=== PATIENT | female | born 1965 | race Caucasian/White ===

== ENCOUNTER 2020-08-13 07:33 | Outpatient (CLI) | payer SELFPAY ==
--- NOTE | ~2020-08-13 | NM_ITS ---
EXAMINATION: NM stress w perf spect multi DATE: 08/13/2020 12:10 INDICATION: Chest pain. Left anterior fascicular block. TECHNIQUE: Rest images were obtained following intravenous administration of 9.4 mCi Tc99m tetrofosmi n (Myoview). The patient performed an exercise activity. At peak exercise, 30.5 mCi Tc99m tetrofosmin (Myoview) was administered intravenously, and stress images were obtained. Data was reconstructed in to short axis and horizontal and vertical long axis SPECT images. Gated SPECT images were also obtain ed. COMPARISON: None. FINDINGS: There is no definite reversible or fixed perfusion abnormality to suggest ischemia or infar ction. There is no segmental wall motion abnormality. Left ventricular ejection fraction measures > 70%. IMPRESSION: 1. No definite ischemia or infarct. 2. Normal left ventricular ejection fraction measuring >70%. Reviewed, dictated and finalized at location A. CAL OFFICE SECRETARY
--- NOTE | 2020-08-13 07:48 | EST_ITS ---
Patient Info Name: Odessa Guerrero Age: 55 years : 1965 Gender: Female Ht: 63 in Wt: 167 lbs BSA: 1.86 m2 Exam Date: 08/13/2020 10:09 AM Exam Location: [facility] Stress Patient Status: Outpatient Admit Date: 08/13/2020 Staff Ordering Physician: Miranda Cortes Attending Provider: Miranda Cortes Exercise Technologist: Vanessa Anaya RDCS Exercise Physician: Michael Johnson DO Exam Type: CA stress test treadmill w NM Study Info Indications i44.4 - left anterior fascicular block A pharmacological stress test was performed. Summary 1. 1. Negative Satinder exercise stress test for ischemic ST changes by ECG criteria. 2. 2. Reduced functional capacity, achieving 7 METs of workload. 3. 3. Baseline hypertension with hypertensive response to exercise. 4. 4. Appropriate HR response to exercise. 5. 5. Appropriate HR recovery at 1 minute post exercise. 6. 6. Nuclear scan to follow and will be reported separately. Please correlate with it. 7. 7. Patient informed of the above results. Protocol: Satinder Stress ECG Details Stage: REST Duration (min): 7 min : 44 sec Speed (mph): 0.0 Grade (%): 0 HR (bpm): 62 SBP (mmHg): 165 DBP (mmHg): 91 METS: --- Stage: REST Duration (min): 10 min : 12 sec Speed (mph): 0.0 Grade (%): 0 HR (bpm): 83 SBP (mmHg): 165 DBP (mmHg): 91 METS: --- Stage: STAGE 1 Duration (min): 1 min : 0 sec Speed (mph): 1.7 Grade (%): 10 HR (bpm): 100 SBP (mmHg): 124 DBP (mmHg): 92 METS: --- Stage: STAGE 1 Duration (min): 2 min : 0 sec Speed (mph): 1.7 Grade (%): 10 HR (bpm): 107 SBP (mmHg): 124 DBP (mmHg): 92 METS: --- Stage: STAGE 1 Duration (min): 3 min : 0 sec Speed (mph): 1.7 Grade (%): 10 HR (bpm): 114 SBP (mmHg): 179 DBP (mmHg): 92 METS: --- Stage: STAGE 2 Duration (min): 1 min : 0 sec Speed (mph): 2.5 Grade (%): 12 HR (bpm): 129 SBP (mmHg): 179 DBP (mmHg): 92 METS: --- Stage: STAGE 2 Duration (min): 2 min : 0 sec Speed (mph): 2.5 Grade (%): 12 HR (bpm): 137 SBP (mmHg): 216 DBP (mmHg): 104 METS: --- Stage: STAGE 2 Duration (min): 3 min : 0 sec Speed (mph): 2.5 Grade (%): 12 HR (bpm): 147 SBP (mmHg): 216 DBP (mmHg): 104 METS: --- Stage: STAGE 3 Duration (min): 0 min : 12 sec Speed (mph): 3.4 Grade (%): 14 HR (bpm): 148 SBP (mmHg): 216 DBP (mmHg): 104 METS: --- Stage: RECOVERY Duration (min): 0 min : 47 sec Speed (mph): 0.0 Grade (%): 0 HR (bpm): 136 SBP (mmHg): 209 DBP (mmHg): 96 METS: --- Stage: RECOVERY Duration (min): 1 min : 47 sec Speed (mph): 0.0 Grade (%): 0 HR (bpm): 100 SBP (mmHg): 209 DBP (mmHg): 96 METS: --- Stage: RECOVERY Duration (min): 2 min : 47 sec Speed (mph): 0.0 Grade (%): 0 HR (bpm): 94 SBP (mmHg): 170 DB
--- NOTE | 2020-08-13 07:48 | ECG_ITS ---
Measurements Intervals [place] Rate: 61 P: 43 MA: 175 QRS: -44 QRSD: 96 T: 61 QT: 402 QTc: 407 Interpretive Statements SINUS RHYTHM POSSIBLE LEFT ATRIAL ENLARGEMENT LEFT AXIS DEVIATION INCOMPLETE RIGHT BUNDLE BRANCH BLOCK POOR R WAVE PROGRESSION, ANTERIOR LEADS BASELINE ARTIFACT- V1 BORDERLINE ECG Electronically Signed On 08-13-2020 8:27:06 VOLUNTEER SERVICES MANAGER by Michael Johnson D.O.
--- NOTE | 2020-08-13 07:48 | ECHO_ITS ---
Patient Info Name: Odessa Guerrero Age: 55 years : 1965 Gender: Female Ht: 63 in Wt: 167 lbs BSA: 1.86 m2 HR: 60 bpm BP: 130 / 87 mmHg Heart Rhythm: Sinus Rhythm Technical Quality: Good Exam Date: 08/13/2020 8:18 AM Exam Location: [facility] Pulmonary Patient Status: Outpatient Admit Date: 08/13/2020 Staff Ordering Physician: Miranda Cortes PAC Engineering Director: Vanessa Anaya RDCS Attending Provider: Miranda Cortes Referring Physician: Sophia CARTAGENA; Exam Type: CA echo doppler color flow Study Info Indications R07.9 - Chest pain, unspecified Complete two-dimensional, color flow and Doppler transthoracic echocardiogram is performed. Strain analysis performed. History/Risk Factors Chest pain. Summary 1. Complete two-dimensional, color flow and Doppler transthoracic echocardiogram is performed. 2. Left ventricular chamber dimension is normal. 3. Left ventricular systolic function is normal, estimated at 60-65%. 4. There is mildly increased left ventricular wall thickness. 5. The left ventricular diastolic function is abnormal. 6. E/e' 14 is mildly elevated. 7. Global longitudinal strain is normal at -17.3%. 8. There is trace tricuspid valve regurgitation. 9. No pulmonary hypertension, estimated pulmonary arterial systolic pressure is 19 mmHg. 10. There is trace pulmonic regurgitation. Left Ventricle E/e' 14 is mildly elevated. Global longitudinal strain is normal at -17.3%. Left ventricular chamber dimension is normal. Left ventricular systolic function is normal, estimated at 60-65%. There is mildly increased left ventricular wall thickness. The left ventricular diastolic function is abnormal. Right Ventricle Right ventricular chamber dimension is normal. Right ventricular systolic function is normal. Left Atria Left atrial chamber dimension is normal. Right Atria Right atrial chamber dimension is normal. Aortic Valve The aortic valve is trileaflet. There is no aortic valve stenosis. There is no aortic valve regurgitation. Pulmonic Valve There is trace pulmonic regurgitation. Mitral Valve There is no mitral valve stenosis. There is no mitral valve regurgitation. Tricuspid Valve There is trace tricuspid valve regurgitation. No pulmonary hypertension, estimated pulmonary arterial systolic pressure is 19 mmHg. Pericardium/Pleural There is no pericardial effusion. Inferior Vena Cava Normal inferior vena cava with >50% collapse upon inspiration consistent with normal right atrial pressure, 5 mmHg. Aorta The aortic root size at the sinus of Valsalva is normal. Left Ventricular Outflow Tract Name Value Normal LVOT 2D LVOT Diameter 2.0 cm LVOT Doppler LVOT Peak Gradient 3 mmHg LVOT Mean Gradient 2 mmHg LVOT VTI 21 cm LVOT VTI/AV VTI Ratio 0.8 LVOT Stroke Volume 63 ml LVOT CO 3.9 l/min LVOT CI 2.1 l/min/m2 Mitral Valv
== END 2020-08-13 07:34 | disposition home or self-care (01) ==
PROVIDERS: PCP Family Medicine; Visit Provider Physician Assistant Medical
DX: R07.9 Chest pain, unspecified (principal); I44.4 Left anterior fascicular block
CPT/HCPCS: 78452; 93005; 93017; 93306; A9502

== ENCOUNTER 2022-12-10 10:44 | Outpatient (CLI) | payer SELFPAY ==
--- NOTE | 2022-12-12 11:41 | WPDHOLTEREM ---
Holter/Event Monitor Holter/Event Monitor Date of procedure: 12/10/22 Holter/Event Procedure: 24 Hr Holter Monitor Indications: Palpitations Conclusion: 1. 24 hour holter monitor on 12/10/22. 2. Underlying rhythm is sinus rhythm. HR range 58-136 bpm; average HR 92 bpm. 3. There are 15 premature supraventricular complexes and 2 supraventricular couplets. No supraventricular tachycardia. 4. There are 4 premature ventricular complexes. No ventricular tachycardia. 5. No sinoatrial or atrioventricular blocks. No significant pauses greater than 2 seconds. 6. No symptoms available for correlation.
== END 2022-12-10 10:45 | disposition home or self-care (01) ==
PROVIDERS: PCP Family Medicine; Visit Provider Nurse Practitioner Family
DX: R00.2 Palpitations (principal)
CPT/HCPCS: 93225; 93226

== ENCOUNTER 2023-12-30 09:49 | Outpatient (CLI) | payer SELFPAY ==
--- NOTE | ~2023-12-30 | DEXA_ITS ---
Bone Density Report Name: NAGA KOHLER Age: 58 Sex: Female Ethnicity: White Date of : 1965 Indication: postmenopausal; screening for osteoporosis; Referring Provider: MERCEDEZ PIERRE Study: Bone densitometry was performed. Exam Date: December 30, 2023 Accession number: [id number] Bone Density: Region BMD T-score Z-score Classification AP Spine(L1-L4) 0.923 -1.1 0.3 Osteopenia Femoral Neck (Left) 0.695 -1.4 -0.1 Osteopenia Total Hip (Left) 0.905 -0.3 0.6 Normal Femoral Neck (Right) 0.743 -1.0 0.3 Normal Total Hip (Right) 0.913 -0.2 0.7 Normal Total Hip Mean 0.909 -0.3 0.7 Normal World Health Organization criteria for BMD impression classify patients as: Normal (T-score at or above -1.0), Osteopenia (T-score between -1.0 and -2.5), or Osteoporosis (T-score at or below -2.5). 10-year Fracture Risk(1): Major Osteoporotic Fracture 7.2% Hip Fracture 0.9% Reported Risk Factors: [place] (), Neck BMD=0.695, BMI=36.7, smoking (1) FRAX(R) Version 3.08. Fracture probability calculated for an untreated patient. Fracture probability may be lower if the patient has received treatment. Clinical Information Provided by Patient: Smokes Has used the following medications: Vitamin D Patient maximum height was 61 Menopause Age: 53 No regular weight bearing exercise Drinks caffeinated beverages Onset of menses at age 16 Number of children 2 Impression: The patient has low bone mass, based on the Left Femoral Neck T-score. The patient has an estimated ten-year risk of hip fracture of 0.9% and an estimated ten-year risk of major fracture of 7.2%, based on the WHO FRAX algorithm. The patient has risk factors, including: smoking. Discussion: BONE DENSITY IS LOW AT ONE OR MORE SKELETAL SITES. This patient's lowest T-score is low at one or more skeletal sites. It meets the World Health Organization's (WHO) criteria for ?low bone mass? (T-score between -1.0 and -2.5). The patient's 10-year risk of fracture as calculated by FRAX is less than the threshold where pharmacological therapy is recommended by the National Osteoporosis Foundation (NOF). However, all treatment decisions require clinical judgment and consideration of individual patient factors, including patient preferences, comorbidities, previous drug use, risk factors not captured in the FRAX model (e.g., frailty, falls, vitamin D deficiency, increased bone turnover, interval significant decline in bone density) and possible under or overestimation of fracture risk by FRAX. The patient should follow a healthful lifestyle (good nutrition with adequate calcium and vitamin D, and appropriate weight-bearing exercise). Follow-Up: Consider repeating this study in 2 to 3 years to reassess this patient's status, or sooner if there is michael
== END 2023-12-30 09:50 | disposition home or self-care (01) ==
LOC: ANHIMG 09:57
PROVIDERS: PCP Family Medicine; Visit Provider Physician Assistant Medical
DX: Z13.820 Encounter for screening for osteoporosis (principal); M85.88 Other specified disorders of bone density and structure, other site; M85.852 Other specified disorders of bone density and structure, left thigh
CPT/HCPCS: 77080

== ENCOUNTER 2025-08-30 14:57 | Outpatient (CLI) | payer SELFPAY ==
--- NOTE | ~2025-08-30 | XR_ITS ---
EXAMINATION: XR chest 2V, 08/30/2025 15:15 VOLUNTEER PATIENT REPRESENTATIVE HISTORY: R05.3 - Chronic cough COMPARISON: No comparisons available. Technique: 2 views obtained. Findings: The lungs are clear, no effusion. No pneumothorax. Heart is normal size. Mediastinal and hilar contours are within normal limits. Bony thorax no acute abnormality. Impression: No acute cardiopulmonary abnormality. Reviewed, dictated and finalized at location P. NTEER PATIENT REPRESENTATIVE Impression: No acute cardiopulmonary abnormality.
== END 2025-08-30 14:58 | disposition home or self-care (01) ==
PROVIDERS: PCP Family Medicine; Visit Provider Physician Assistant Medical
DX: R05.3 Chronic cough (principal)
CPT/HCPCS: 71046